=== PATIENT | male | born 1980 | race African-American/Black ===

== ENCOUNTER 2019-08-13 13:27 | Emergency (ER) | payer SELFPAY ==
--- NOTE | 2019-08-13 13:58 | ER Document Report ---
ED Medical Screen (RME) - General Chief Complaint: Headache Stated Complaint: HEAD PAIN Time Seen by Provider: 08/13/19 13:50 Mode of Arrival: Wheelchair Information source: Patient Notes: 38-year-old male patient presenting to the emergency department chief complaint of headache. Patient reports a frontal headache that is been ongoing since he fell 2 days ago striking his head on the ground. He denies any loss of consciousness at that time. He does report that he has had 2 brain aneurysms and he also has a metal plate in his head. He is unable to tell me why he has the metal plate in his head. This was placed in [place]. Patient is reporting difficulty getting his speech together and weakness in his right arm although he states those have been going on for several months and are not new. He was was to have an appointment with his neurologist however it was canceled due to COVID-19. Patient is alert, oriented, speaking in full and complete sentences although he is a bit slow with his responses. I have greeted and performed a rapid initial assessment of this patient. A comprehensive ED assessment and evaluation of the patient, analysis of test results and completion of the medical decision making process will be conducted by additional ED providers. I have specifically instructed the patient or family members with the patient to immediately return to any nursing staff should anything change in the patient's condition or with their chief complaint. - Related Data Home Medications: seizure meds Past Medical History - Social History Frequency of alcohol use: None Drug Abuse: None Physical Exam - Vital signs Vitals: Temp Pulse Resp BP Pulse Ox 98.4 F 80 18 141/82 H 96 08/13/19 13:41 08/13/19 13:41 08/13/19 13:41 08/13/19 13:41 08/13/19 13:41 Course - Vital Signs Vital signs: Temp Pulse Resp BP Pulse Ox 98.4 F 80 18 141/82 H 96 08/13/19 13:50 08/13/19 13:41 08/13/19 13:41 08/13/19 13:41 08/13/19 13:41
--- NOTE | 2019-08-13 14:26 | RADIOLOGY REPORT (SQ) ---
EXAM DESCRIPTION: CT HEAD WITHOUT IMAGES COMPLETED DATE/TIME: 08/13/2019 2:10 pm REASON FOR STUDY: headache, post-fall two days ago, hx of aneurysm COMPARISON: None. TECHNIQUE: Axial images acquired through the brain without intravenous contrast. Images reviewed wi th bone, brain and subdural windows. Additional sagittal and coronal reconstructions were generated. Images stored on PACS. All CT scanners at this facility use dose modulation, iterative reconstruction, and/or weight based d osing when appropriate to reduce radiation dose to as low as reasonably achievable (ALARA). [facility]: Dose Right [facility]: CareDose [facility]: Dose Right [facility]: Teradose 4D [facility]: [employer] RADIATION DOSE: CT Rad equipment meets quality standard of care and radiation dose reduction techniq ues were employed. CTDIvol: 48.6 mGy. DLP: 954 mGy-cm. mGy. LIMITATIONS: None. FINDINGS: VENTRICLES: Ex vacuo enlargement of the occipital horn of the left lateral ventricle. CEREBRUM: The large area of encephalomalacia in the left posterior parietal region. No acute hemorrh age. No mass. Normal baeza/white matter differentiation. No areas of low density in the white matter. CEREBELLUM: No masses. No hemorrhage. No alteration of density. No evidence for acute infarction. EXTRAAXIAL SPACES: No fluid collections. No masses. ORBITS AND GLOBE: No intra- or extraconal masses. Normal contour of globe without masses. CALVARIUM: Extensive craniotomy changes on the left. No acute finding. It would be helpful to deb re this with a prior CT if 1 can be obtained for comparison. PARANASAL SINUSES: No fluid or mucosal thickening. SOFT TISSUES: No mass or hematoma. OTHER: No other significant finding. IMPRESSION: Surgical changes. No acute intracranial imaging finding. EVIDENCE OF ACUTE STROKE: NO. COMMENT: Would be helpful to compare this study with a prior CT if 1 can be obtained for comparison. Quality ID # [id number]: Final reports with documentation of one or more dose reduction techniques (e.g., Au tomated exposure control, adjustment of the mA and/or kV according to patient size, use of iterative reconstruction technique) TECHNICAL DOCUMENTATION: JOB ID: [id number] 2010 [employer]- All Rights Reserved Reading location - IP/workstation name: [email or web address]
[2019-08-13] MEDS ORDERED: OXYCODONE-ACETAMINOPHEN 5-325 MG TABLET PO ONE (14:43)
[2019-08-13] MEDS ORDERED: ONDANSETRON 4 MG TAB.RAPDIS PO ONE (14:44)
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
[2019-08-13 15:09] VITALS: BP 132/95
== END 2019-08-13 15:09 | disposition home or self-care (01) ==
LOC: ER 13:27
DX: G44.309 Post-traumatic headache, unspecified, not intractable (principal); I10 Essential (primary) hypertension
CPT/HCPCS: 99284; 70450; S0119